=== PATIENT | female | born 1975 | race Caucasian/White ===

== ENCOUNTER 2024-08-03 05:30 | Day surgery (SDC) | payer OTHER ==
[2024-07-27 11:59] VITALS: BP 102/70
[~2024-08-03] VITALS: Ht 157.5 cm; Wt 104.3 kg
[~2024-08-03 05:30] MED LIST: CLONAZEPAM1 MG PO; HYZAAR 100-251 EACH PO; METFORMIN HCL750 MG PO; SYNTHROID50 MCG PO; TOPROL XL100 M1 PO; TROKENDI XR100 MG PO
[2024-08-03] MEDS ORDERED: BUPIVACAINE HCL 30 ML VIAL IJ ONE (09:00)
[2024-08-03] MEDS ORDERED: LIDOCAINE HCL 1%/EPINEPHRINE 20ML VIAL IJ ONE (09:00)
[2024-08-03] MEDS ORDERED: PERCOCET 5-3251 EACH PO (09:01)
[2024-08-03] MEDS ORDERED: RECTICARE30 GM TOP (09:02)
[2024-08-03] MEDS ORDERED: DIBUCAINE 30 GM TUBE RECTAL ONE (09:15)
[2024-08-03] MEDS ORDERED: MORPHINE SULFATE 4 MG/ML VIAL IV ONE (10:00)
[2024-08-03] MEDS ORDERED: POVIDONE-IODINE 118 ML BOTT TOP ONE (11:45)
[2024-08-03] MEDS ORDERED: METRONIDAZOLE/SODIUM CHLORIDE 500 MG/100 ML PIGGYBACK IV ONE ×2 (11:45)
[2024-08-03] MEDS ORDERED: HEMOSTATIC MATRIX 1 KIT KIT TOP ONE (11:45)
[2024-08-03] MEDS ORDERED: CEFTRIAXONE SODIUM 2,000 MG VIAL IV ONE (11:45)
== END 2024-08-03 11:00 | disposition home or self-care (01) ==
LOC: CIR.AMB 05:30
PROVIDERS: ATTEND Surgery
DX: K60.30 Anal fistula, unspecified (principal); Z88.8 Allergy status to other drugs, medicaments and biological substances